=== PATIENT | male | born 1970 | race Caucasian/White ===

== ENCOUNTER 2021-04-30 09:11 | Emergency (ER) | payer BC ==
[~2021-04-30] VITALS: Ht 177.8 cm; Wt 89.4 kg
[2021-04-30] MEDS ORDERED: LIPITOR20 MG (09:31)
[2021-04-30] MEDS ORDERED: AMOX-CLAV 875-1 EACH PO (13:03)
[2021-04-30] MEDS ORDERED: KETO10TA2 PO (13:03)
== END 2021-04-30 13:16 | disposition home or self-care (01) ==
LOC: ER 09:11
DX: H92.01 Otalgia, right ear (principal)